=== PATIENT | female | born 1970 | race Two or more races ===

== ENCOUNTER 2023-05-27 13:20 | Emergency (ER) | payer OTHER ==
[2023-05-27 13:44] VITALS: BP 139/69; PULSE 71; RESP 18; TEMP 98.3; BMI 27.4
[2023-05-27 16:07] LABS: EOS % 1.7 % (0-4.5); HEMATOCRIT 43.8 % (32.4-45.2); HEMOGLOBIN 14.6 GM/dL (10.7-15.3); LYMPH % 26.6 % (8-40); MCH 29.5 pg (25.7-33.7); MCHC 33.3 g/dl (32.0-36.0); MEAN CELL VOLUME 88.6 fl (80-96); MEAN PLT VOLUME 9.6 fl (7.5-11.1); MONO % 5.1 % (3.8-10.2); NEUT % 65.6 % (42.8-82.8); PLATELET COUNT 282 10^3/uL (134-434); RBC 4.94 M/mm3 (3.60-5.2); RDW 14.2 % (11.6-15.6); WHITE BLOOD COUNT 7.4 K/mm3 (4.0-10.0)
[2023-05-27 16:31] LABS: INR 1.12 (0.83-1.09); POTASSIUM 4.3 mmol/L (3.5-5.1)
[2023-05-27 16:33] LABS: ACTIVATED PTT 30.9 SECONDS (25.2-36.5); ALBUMIN 3.8 g/dl (3.4-5.0); CALCIUM 9.4 mg/dL (8.5-10.1)
[2023-05-27 16:34] LABS: BLOOD UREA NITROGEN 11.8 mg/dL (7-18); MAGNESIUM 1.9 mg/dL (1.8-2.4)
[2023-05-27 16:37] LABS: CREATININE 0.6 mg/dL (0.55-1.3)
[2023-05-27 16:38] LABS: BILIRUBIN,TOTAL 0.8 mg/dL (0.2-1)
[2023-05-27 16:42] LABS: N-TERMINAL BNP 24.4 pg/ml (5-125)
== END 2023-05-27 17:31 | disposition left against medical advice (07) ==
LOC: JER 13:20
DX: R42 Dizziness and giddiness (principal); R53.1 Weakness; R55 Syncope and collapse; R94.31 Abnormal electrocardiogram [ECG] [EKG]
CPT/HCPCS: 36415; 71046-TC-FY; 80053; 83735; 83880; 84484; 84703; 85025; 85610; 85730; 86850; 86900; 86901; 93005; 93010; 99285-25

== ENCOUNTER 2023-05-31 11:46 | Emergency (ER) | payer OTHER ==
[2023-05-31 11:50] VITALS: BP 127/80; PULSE 83; RESP 18; TEMP 97; BMI 33.3
[2023-05-31] MEDS ORDERED: MECLIZINE HCL 25 MG TABLET (FP) PO ONE (12:53)
[2023-05-31] MEDS ORDERED: LACTATED RINGERS SOLUTION 1000 ML INFUS.BAG IV ONE (13:00)
[2023-05-31] MEDS ORDERED: MECLIZINE HCL 25 MG TABLET (FP) ONE (13:08)
[2023-05-31 13:25] LABS: BASO % 1.1 % (0-2.0); EOS % 2.8 % (0-4.5); HEMOGLOBIN 14.3 GM/dL (10.7-15.3); LYMPH % 37.9 % (8-40); MCHC 33.2 g/dl (32.0-36.0); MEAN CELL VOLUME 87.4 fl (80-96); MEAN PLT VOLUME 9.1 fl (7.5-11.1); MONO % 8.1 % (3.8-10.2); NEUT % 50.1 % (42.8-82.8); PLATELET COUNT 290 10^3/uL (134-434); RBC 4.92 M/mm3 (3.60-5.2); WHITE BLOOD COUNT 5.4 K/mm3 (4.0-10.0)
[2023-05-31 13:28] LABS: EPI CELLS 12 /uL (0-25.1); HYALINE CASTS 1 /uL (0-3.1); URINE APPEARANCE CLEAR; URINE BACTERIA 349 /uL (0-1359); URINE BILIRUBIN NEGATIVE (NEGATIVE); URINE COLOR YELLOW; URINE GLUCOSE (UA) NEGATIVE (NEGATIVE); URINE KETONE NEGATIVE (NEGATIVE); URINE LEUK ESTERASE NEGATIVE (NEGATIVE); URINE NITRITE NEGATIVE (NEGATIVE); URINE PROTEIN NEGATIVE (NEGATIVE); URINE RBC 23 /uL (0-23.9); URINE WBC 7 /uL (0-25.8)
[2023-05-31 13:49] LABS: POTASSIUM 4.1 mmol/L (3.5-5.1)
[2023-05-31 13:51] LABS: ALBUMIN 3.4 g/dl (3.4-5.0); BLOOD UREA NITROGEN 10.2 mg/dL (7-18); CALCIUM 8.8 mg/dL (8.5-10.1)
[2023-05-31 13:52] LABS: MAGNESIUM 2.2 mg/dL (1.8-2.4)
[2023-05-31 13:54] LABS: CREATININE 0.7 mg/dL (0.55-1.3); PHOSPHOROUS 2.4 mg/dL (2.5-4.9)
[2023-05-31 13:56] LABS: BILIRUBIN,TOTAL 0.6 mg/dL (0.2-1); TOT PROT 6.7 g/dl (6.4-8.2)
== END 2023-05-31 15:42 | disposition home or self-care (01) ==
LOC: JER 11:46
DX: R42 Dizziness and giddiness (principal); Z20.822 Contact with and (suspected) exposure to COVID-19
CPT/HCPCS: 0241U-QW; 36415; 80053; 81003; 83735; 84100; 84484; 85025; 87086; 93005; 93010; 99284-25